=== PATIENT | female | born 1945 | race Caucasian/White ===

== ENCOUNTER 2024-12-16 11:54 | Emergency (ER) | payer OTHER ==
--- NOTE | 2024-12-16 13:03 | RAD REPORT ---
EXAMINATION: XR RIGHT FOREARM CLINICAL INDICATION: . fall;Pain TECHNIQUE:Two view radiograph of the right forearm were obtained. COMPARISON: No prior exam. FINDINGS: Distal radius fracture is present. Diffuse osteopenia is present. No dislocation is visuali zed. Soft tissue swelling is seen about the elbow.
--- NOTE | 2024-12-16 13:03 | RAD REPORT ---
EXAMINATION: XR RIGHT WRIST CLINICAL INDICATION: PAIN RIGHT TECHNIQUE: Multiple projections of the right wrist were obtained. COMPARISON: No prior exam. FINDINGS: Diffuse osteopenia is seen. Distal radial fracture is present predominantly along the radi al metaphysis. No dislocation. Chondrocalcinosis identified.
[2024-12-16] MEDS ORDERED: TRAMADOL HCL 50 MG TAB ONE (13:05)
[2024-12-16] MEDS ORDERED: LIDOCAINE 1% 20 ML MDV ONE (14:08)
[2024-12-16] MEDS ORDERED: HYDROCODONE/APAP 5/325 MG TAB ONE (14:43)
[2024-12-16] MEDS ORDERED: TDAP (DIPHTH,PERTUSS(ACELL),TET VAC) 0.5 ML VIAL IMVAC ONE (15:01)
[2024-12-16] MEDS ORDERED: MUPIROCIN 2% OINT 22GM TUBE TOP ONE (15:33)
--- NOTE | 2024-12-16 15:35 | ER ---
Nurse's Notes [facility] Name: Rylie Kirkland Age: 79 yrs Sex: Female : 1945 Arrival Date: 12/16/2024 Time: 11:54 Bed 12 Private MD: Diagnosis: Fall (on) (from) unspecified stairs and steps;Arm Laceration Right/Open wound forearm;Fracture of lower end of radius Presentation: 12/16 12:23 Chief complaint: Patient states: Getting into boat and miscalculated reach and fell, jl7 laceration to right forearm, swelling noted to right wrist. Coronavirus screen: At this time, the client does not indicate any symptoms associated with coronavirus-19. Ebola Screen: No symptoms or risks identified at this time. Initial Sepsis Screen: Does the patient meet any 2 criteria? No. Patient's initial sepsis screen is negative. Does the patient have a suspected source of infection? No. Patient's initial sepsis screen is negative. Risk Assessment: Do you want to hurt yourself or someone else? Patient reports no desire to harm self or others. Onset of symptoms was December 16, 2024 at 11:15. 12:23 Method Of Arrival: Ambulatory [facility] 12:23 Acuity: LOBO 4 jl7 Triage Assessment: 12:25 General: Appears in no apparent distress. uncomfortable, Behavior is calm, cooperative, jl7 appropriate for age. Pain: Complains of pain in right arm. Injury Description: Laceration sustained to palmar aspect of right forearm. Historical: - Allergies: 12:25 Celebrex; jl7 - Home Meds: 12:27 None [Active]; jl7 - PMHx: 12:27 None; jl7 - PSHx: 12:27 None; jl7 - Immunization history:: Adult Immunizations unknown. - Infectious Disease History:: Denies. - Social history:: Smoking status: Patient denies any tobacco usage or history of. - History obtained from: spouse. Assessment: 15:51 Reassessment: Patient appears in no apparent distress at this time. Patient and/or iw family updated on plan of care and expected duration. Pain level reassessed. Patient is alert, oriented x 3, equal unlabored respirations, skin warm/dry/pink. splint placed to right wrist, wound care complete , pt ambulatory out of dept, appreciative of care given. Vital Signs: 12:23 BP 161 / 85; Pulse 87; Resp 17; Temp 97.9; Pulse Ox 100% ; Weight 39.92 kg; Height 5 jl7 ft. 2 in. ; 12:23 Body Mass Index 16.10 (39.92 kg, 157.48 cm) jl7 ED Course: 11:58 Patient arrived in ED. mr 12:18 Shaquille Vale is Attending Physician. ci 12:25 Triage completed. jl7 12:25 Arm band placed on right wrist. jl7 12:56 Forearm Right XRAY In Process Unspecified. EDMS 12:56 Wrist Right 3 View XRAY In Process Unspecified. EDMS 14:48 Sugey Billy, RN is Primary Nurse. iw 15:40 Assist provider with laceration repair on right arm and palmar aspect of right forearm iw that was between 7.6 to 12.5 cm using sutures. Set up tray. Performed by Shaquille Vale Dressed with 4X4s, Antolin, Neosporin, Patient tolerated well. Administered Medications: 13:13 Drug: traMADol PO 25 mg PO once Route: PO; ld1 14:45 Drug: Lidocaine Infiltration (1 %) 5 ml 5 ml Infiltration once; to bedside Volume: 5 iw ml; Route: Infiltration; 14:54 Drug: HYDROcodone-acetaminophen PO 5 mg-325 mg 1 tabs PO once Route: PO; iw 15:30 Drug: Boostrix Tdap IM 0.5 ml IM once; as a single dose Route: IM; Site: right deltoid; iw Outcome: 15:35 Discharge ordered by MD. ci 15:52 Discharged to home ambulatory, with family, iw 15:52 Condition: good 15:52 Discharge instructions given to patient, family, Instructed on discharge instructions, follow up and referral plans. medication usage, Demonstrated understanding of instructions, follow-up care, medications, Prescriptions given X 1, 15:52 Patient left the ED. iw Signatures: Dispatcher [employer] EDMS Maria D Chauhan, Reg Reg Sugey Billy RN RN iw Brando Christensen RN RN jl7 Radha Feliz RN RN ld1 Shaquille Vale ci Corrections: (The following items were deleted from the chart) 12:26 12:25 Allergies: No Known Allergies; jl7 jl7 19:59 19:57 Assist provider with laceration repair on palmar aspect of right forearm iw iw
--- NOTE | 2024-12-16 15:35 | EDPHYS ---
Physician Documentation [facility] Name: Rylie Kirkland Age: 79 yrs Sex: Female : 1945 Arrival Date: 12/16/2024 Time: 11:54 Bed 12 Private MD: ED Physician Shaquille Vale HPI: 12/16 13:47 This 79 yrs old Female presents to ER via Ambulatory with complaints of Fall Injury, ci Laceration To Arm, Wrist Injury. 13:47 Patient is a 79-year-old female with PMH hypertension who presents to the ED with chief ci complaint of right arm pain s/p fall. Patient was attempting to get on the boat and missed a step. No head strike, no LOC, not on blood thinners. Patient sustained a large skin tear to the right forearm, complaining of right wrist pain.. Historical: - Allergies: 12:25 Celebrex; jl7 - Home Meds: 12:27 None [Active]; jl7 - PMHx: 12:27 None; jl7 - PSHx: 12:27 None; jl7 - Immunization history:: Adult Immunizations unknown. - Infectious Disease History:: Denies. - Social history:: Smoking status: Patient denies any tobacco usage or history of. - History obtained from: spouse. ROS: 13:47 Constitutional: Negative for fever, chills, and weight loss, Cardiovascular: Negative ci for chest pain, palpitations, and edema, Respiratory: Negative for shortness of breath, cough, wheezing, and pleuritic chest pain, Neuro: Negative for headache, weakness, numbness, tingling, and seizure, 13:47 MS/extremity: Positive for pain, swelling, tenderness, 13:47 Skin: Positive for laceration(s), Exam: 13:47 Constitutional: This is a well developed, well nourished patient who is awake, alert, ci and in no acute distress. Head/Face: Normocephalic, atraumatic. Cardiovascular: Regular rate and rhythm with a normal S1 and S2. No gallops, murmurs, or rubs. Normal PMI, no JVD. No pulse deficits. Respiratory: Lungs have equal breath sounds bilaterally, clear to auscultation and percussion. No rales, rhonchi or wheezes noted. No increased work of breathing, no retractions or nasal flaring. Skin: Warm, dry with normal turgor. Normal color with no rashes, large skin tear to right forearm Neuro: Awake and alert, GCS 15, oriented to person, place, time, and situation. Cranial nerves II-XII grossly intact. Motor strength 5/5 in all extremities. Sensory grossly intact. Cerebellar exam normal. Normal gait. Vital Signs: 12:23 BP 161 / 85; Pulse 87; Resp 17; Temp 97.9; Pulse Ox 100% ; Weight 39.92 kg; Height 5 jl7 ft. 2 in. ; 12:23 Body Mass Index 16.10 (39.92 kg, 157.48 cm) jl7 Laceration: 13:47 Wound Repair of subcutaneous laceration to right arm. Distal neuro/vascular/tendon ci intact. 15:30 Wound Repair of 10cm ( 3.9in ) subcutaneous laceration to right arm. Distal ci neuro/vascular/tendon intact. Anesthesia: Local anesthetic administered with 5 mls of 1% lidocaine. Wound prep: Extensive cleansing with hibiclenz by me, Wound irrigation with saline by me, Particulate matter removal of dirt by me, Copious irrigation. Skin closed with 18 5-0 Prolene using interrupted sutures and sterile technique. Dressed with Bacitracin, non-adherent dressing. Patient tolerated well. MDM: 12:18 Medical Screening Exam initiated ci 15:30 Differential diagnosis: abrasion, fracture, laceration, sprain, strain. Data reviewed:. ci ED course: Distal radius fracture noted right, placed in Velcro splint. Large laceration to right forearm, repaired successfully patient tolerated well. Patient's tetanus was updated, will start on Keflex as wound is dirty. 12/16 12:29 Order name: Forearm Right XRAY; Complete Time: 13:46 ci 12/16 12:29 Order name: Wrist Right 3 View XRAY; Complete Time: 13:46 ci Administered Medications: 13:13 Drug: traMADol PO 25 mg PO once Route: PO; ld1 14:45 Drug: Lidocaine Infiltration (1 %) 5 ml 5 ml Infiltration once; to bedside Volume: 5 iw ml; Route: Infiltration; 14:54 Drug: HYDROcodone-acetaminophen PO 5 mg-325 mg 1 tabs PO once Route: PO; iw 15:30 Drug: Boostrix Tdap IM 0.5 ml IM once; as a single dose Route: IM; Site: right deltoid; iw Disposition Summary: 12/16/24 15:35 Discharge Ordered Notes: Location: Home ci Condition: Stable ci Diagnosis - Fall (on) (from) unspecified stairs and steps ci - Arm Laceration Right/Open wound forearm ci - Fracture of lower end of radius ci Followup: ci - With: Private Physician - When: 2 - 3 days - Reason: Wound Recheck, Recheck today's complaints, Re-evaluation by your physician Discharge Instructions: - Discharge Summary Sheet ci - Radial Fracture ci - Laceration Care, Adult, [id number] ci Forms: - Medication Reconciliation Form ci - Antibiotic Education ci - Prescription Opioid Use ci - Patient Portal Instructions ci - Leadership Thank You Letter ci Prescriptions: - Cephalexin 500 mg Oral capsule - take 1 capsule ORAL route every 8 hours for 7 days; 30 capsule; Refills: 0, ci Product Selection Permitted Signatures: Dispatcher [employer] Sugey Colon RN RN Brando Christensen RN RN caterina7 Radha Feliz RN RN ld1 Shaquille Vale ci Corrections: (The following items were deleted from the chart) 12:26 12:25 Allergies: No Known Allergies; steven jl7 12:29 12:29 Wrist Right 3 View+[email or web address] ordered. EDFL EDMS
[2024-12-16 16:17] VITALS: BP 161/85; TEMP 97.9; O2SAT 100
== END 2024-12-16 15:52 | disposition home or self-care (01) ==
LOC: ER 11:54
DX: S41.111A Laceration without foreign body of right upper arm, initial encounter (principal); S52.501A Unspecified fracture of the lower end of right radius, initial encounter for closed fracture; W10.9XXA Fall (on) (from) unspecified stairs and steps, initial encounter; Y92.814 Boat as the place of occurrence of the external cause; Z23 Encounter for immunization
CPT/HCPCS: 73090; 73110; 90715; 96372; 99284; 12034; J2003